=== PATIENT | female | born 1975 | race Caucasian/White ===

== ENCOUNTER 2021-09-03 23:57 | Inpatient (IN) | payer OTHER ==
[~2021-09-03] VITALS: Ht 167.6 cm; Wt 142.7 kg
[2021-09-04 00:43] LABS: BASOPHILS ABSOLUTE AUTO 0.05 K/mm3 (0.00-0.23); BASOPHILS PERCENT AUTO 0 % (0-2); EOSINOPHILS PERCENT AUTO 0 % (0-6); Hematocrit 42.9 % (33.0-51.0); Hemoglobin 13.8 g/dL (11.5-16.0); IMMATURE GRAN ABSOLUTE AUTO 0.16 K/mm3 (0.00-0.10); IMMATURE GRAN PERCENT AUTO 1 % (0-1); LYMPHOCYTES ABSOLUTE AUTO 0.58 K/mm3 (0.84-5.20); LYMPHOCYTES PERCENT AUTO 3 % (21-46); MONOCYTES ABSOLUTE AUTO 0.81 K/mm3 (0.16-1.47); MONOCYTES PERCENT AUTO 4 % (4-13); Mean Corpuscular HGB 27.4 pg (26.0-34.0); Mean Corpuscular HGB Conc 32.2 g/dL (31.5-36.5); Mean Corpuscular Volume 85 fL (80-100); Mean Platelet Volume 10.1 fL (9.1-12.4); NEUTROPHILS ABSOLUTE AUTO 17.67 K/mm3 (1.96-9.15); NEUTROPHILS PERCENT AUTO 92 % (41-73); Platelet Count 259 K/mm3 (150-400); RDW Coefficient Variation 17.5 % (11.7-14.2); RDW Standard Deviation 54.4 fL (35.1-46.3); Red Blood Cell Count 5.03 M/mm3 (3.80-5.20); White Blood Cell Count 19.27 K/mm3 (4.00-11.30)
[2021-09-04 06:57] LABS: Albumin, Blood 3.6 g/dL (3.4-5.0); Albumin/Globulin Ratio 0.9 (0.8-1.8); Bilirubin, Total 0.8 mg/dL (0.1-1.0); Bun/Creatinine Ratio 9.3 (12.0-20.0); Calcium, Blood 9.4 mg/dL (8.5-10.1); Creatinine, Blood 0.86 mg/dL (0.40-1.00); Potassium, Blood 3.5 mmol/L (3.5-5.5); Total Protein, Blood 7.6 g/dL (6.4-8.2)
[2021-09-04] MEDS ORDERED: ATOR20 PO (08:10)
[2021-09-04] MEDS ORDERED: NIAC500 PO (08:12)
[2021-09-04] MEDS ORDERED: HYDCHL25 PO (08:13)
[2021-09-04] MEDS ORDERED: JANTOVEN5 MG PO (08:14)
[2021-09-04] MEDS ORDERED: ESCI20 PO (08:14)
[2021-09-04] MEDS ORDERED: OMEP20ER PO (08:15)
[2021-09-04] MEDS ORDERED: CRANBERRY500 M1 PO (08:17)
[2021-09-04] MEDS ORDERED: MAGNESIUM OXID500 MG PO (08:18)
[2021-09-04] MEDS ORDERED: VITAMIN D5000 UNIT PO (08:19)
[2021-09-04 08:20] LABS: BASOPHILS ABSOLUTE AUTO 0.04 K/mm3 (0.00-0.23); BASOPHILS PERCENT AUTO 0 % (0-2); EOSINOPHILS PERCENT AUTO 0 % (0-6); Hemoglobin 13.6 g/dL (11.5-16.0); IMMATURE GRAN PERCENT AUTO 1 % (0-1); LYMPHOCYTES ABSOLUTE AUTO 0.75 K/mm3 (0.84-5.20); LYMPHOCYTES PERCENT AUTO 5 % (21-46); MONOCYTES ABSOLUTE AUTO 0.69 K/mm3 (0.16-1.47); MONOCYTES PERCENT AUTO 4 % (4-13); Mean Corpuscular HGB 27.4 pg (26.0-34.0); Mean Corpuscular HGB Conc 32.4 g/dL (31.5-36.5); Mean Corpuscular Volume 85 fL (80-100); NEUTROPHILS ABSOLUTE AUTO 14.82 K/mm3 (1.96-9.15); NEUTROPHILS PERCENT AUTO 90 % (41-73); RDW Coefficient Variation 17.6 % (11.7-14.2); Red Blood Cell Count 4.97 M/mm3 (3.80-5.20)
[2021-09-04] MEDS ORDERED: GLUCHON PO (08:20)
[2021-09-04] MEDS ORDERED: HYDROCODONE-AC1 EA17 PO (08:21)
[2021-09-04 08:22] LABS: Mean Platelet Volume 11.2 fL (9.1-12.4); Platelet Count 147 K/mm3 (150-400)
[2021-09-04 08:39] LABS: Appearance, Urine Hazy (Clear); Color, Urine Yellow (P-Yellow); Leukocyte Esterase, Urine 1+ (Neg); Source, Urine Clean Catch; Specific Gravity, Urine 1.005 (1.003-1.022)
[2021-09-04 08:40] LABS: Bilirubin, Urine Neg (Neg); Blood, Urine Neg (Neg); Glucose Qualitative, Urine Neg (Neg); Ketones, Urine Neg (Neg); Nitrite, Urine Pos (Neg); Protein, Urine 2+ (Neg); Urobilinogen, Urine 1+ (Normal)
[2021-09-04 08:41] LABS: Bacteria Mod /hpf; Mucus Light (0-Heavy); Red Blood Cells, Urine 0-2 /hpf (0-2); Squamous Epithelial Cells Few /hpf (Few)
[2021-09-04 08:45] LABS: Bun/Creatinine Ratio 9.7 (12.0-20.0); Calcium, Blood 8.2 mg/dL (8.5-10.1); Creatinine, Blood 0.72 mg/dL (0.40-1.00); Potassium, Blood 3.8 mmol/L (3.5-5.5)
[2021-09-04 09:47] LABS: International Normalized Ratio 1.93; Prothrombin Time Results 19.4 Sec (9.7-11.5)
--- NOTE | 2021-09-04 18:05 | NUR ---
SHIFT SUMMARY- PT C/O OF PAIN, MANAGED PAIN NEES THROUGH EMAR. D/C QUANG, PT USING BED BRUCE NEEDED. PT WITH FAMILY AT BEDSIDE. PT ASLEEP AND RESTING THROUGHOUT MOST OF SHIFT. PT APPETITE POOR. REPOSITIONED PT NEEDED TO MANAGE PAIN RELIEF. PT RESTING NOW WITH SIDE RAIL AND CALL LIGHT WITHIN REACH.
--- NOTE | 2021-09-04 18:50 | NUR ---
THIS BRADDISHER HAS REVEIWED NOTES AND ASSESSMENTS BY DOREEN PERALTA AND AGREES WITH THEM.
[2021-09-05 04:50] LABS: BASOPHILS ABSOLUTE AUTO 0.05 K/mm3 (0.00-0.23); BASOPHILS PERCENT AUTO 0 % (0-2); EOSINOPHILS ABSOLUTE AUTO 0.03 K/mm3 (0.00-0.68); EOSINOPHILS PERCENT AUTO 0 % (0-6); Hematocrit 38.2 % (33.0-51.0); IMMATURE GRAN ABSOLUTE AUTO 0.07 K/mm3 (0.00-0.10); IMMATURE GRAN PERCENT AUTO 1 % (0-1); LYMPHOCYTES ABSOLUTE AUTO 1.89 K/mm3 (0.84-5.20); LYMPHOCYTES PERCENT AUTO 15 % (21-46); MONOCYTES ABSOLUTE AUTO 0.92 K/mm3 (0.16-1.47); MONOCYTES PERCENT AUTO 8 % (4-13); Mean Corpuscular HGB 27.3 pg (26.0-34.0); Mean Corpuscular HGB Conc 31.4 g/dL (31.5-36.5); Mean Corpuscular Volume 87 fL (80-100); Mean Platelet Volume 10.3 fL (9.1-12.4); NEUTROPHILS ABSOLUTE AUTO 9.28 K/mm3 (1.96-9.15); NEUTROPHILS PERCENT AUTO 76 % (41-73); Platelet Count 206 K/mm3 (150-400); RDW Coefficient Variation 17.9 % (11.7-14.2); RDW Standard Deviation 57.4 fL (35.1-46.3); Red Blood Cell Count 4.39 M/mm3 (3.80-5.20); White Blood Cell Count 12.24 K/mm3 (4.00-11.30)
[2021-09-05 05:04] LABS: International Normalized Ratio 1.65; Prothrombin Time Results 16.8 Sec (9.7-11.5)
[2021-09-05 05:21] LABS: Bun/Creatinine Ratio 7.6 (12.0-20.0); Calcium, Blood 8.5 mg/dL (8.5-10.1); Creatinine, Blood 0.66 mg/dL (0.40-1.00); Potassium, Blood 3.4 mmol/L (3.5-5.5)
--- NOTE | 2021-09-05 05:39 | NUR ---
COLLATERAL CLERK SUMMARY PATIENT ALERT AND ORIENTED X4 AND COOPERATIVE. VSS. PT REFUSED NORCO FOR 9/10 PAIN AND ADVIL WAS ADMINISTERED INSTEAD. PT STATED HER PAIN DECLINED TO 8/10 FOLLOWING ADVIL, BUT SHE WAS ABLE TO SLEEP MOST THE REST OF THE SHIFT. PT WAS ABLE TO AMBULATE TO THE BATHROOM AND BACK THIS SHIFT WITH MINIMAL ASSISTANCE. CELLULITIS DOES NOT APPEAR TO HAVE SPREAD. NO OTHER ACUTE CHANGES THIS SHIFT.
[2021-09-05] MEDS ORDERED: ENOX100I SC (12:46)
[2021-09-05] MEDS ORDERED: LACT PO (12:47)
[2021-09-05] MEDS ORDERED: SULFAMETHOXAZO1 EAC1 PO (12:48)
--- NOTE | 2021-09-05 13:54 | NUR ---
DISCHARGE NOTE D/C HOME ORDERS REVIEVED AND REVIEWED. HOME INSTRUCTIONS AND MEDICATIONS REVIEWED WITH PT, PT INSTRUCTED ON HOW TO ADMINISTER LOVENOX INJECTIONS AT HOME. HOME LUCAS REFERRAL SENT TO [facility] WITH [employer]. RX SENT TO PT'S PHARMACY OF CHOICE OF [facility]. PT AND DAUGHTER VERBALIZE UNDERSTANDING AND AGREE. PT DISCHARGED HOME AND WAS EXCORTED OUT VIA WHEELCAHIR AND TRANSPORTED HOME BY DAUGHTER VIA PRIVATE VEHICLE.
== END 2021-09-05 13:53 | disposition home health service (06) | DRG 871 ==
LOC: ER 23:57 → MEDS 09-04 04:30
PROVIDERS: Family Medicine; Student in an Organized Health Care Education/Training Program; ADMIT Internal Medicine
DX: A41.9 Sepsis, unspecified organism (principal); G92.8 Other toxic encephalopathy; L03.116 Cellulitis of left lower limb; N39.0 Urinary tract infection, site not specified; Z86.718 Personal history of other venous thrombosis and embolism; Z90.49 Acquired absence of other specified parts of digestive tract; Z86.711 Personal history of pulmonary embolism; Z98.51 Tubal ligation status; Z79.01 Long term (current) use of anticoagulants; Z98.890 Other specified postprocedural states; Z88.6 Allergy status to analgesic agent; Z88.5 Allergy status to narcotic agent; F17.290 Nicotine dependence, other tobacco product, uncomplicated
CPT/HCPCS: 36415; 51702; 71045; 80048; 80053; 81001; 83605; 83880; 84484; 85025; 85379; 85610; 87040; 87077; 87086; 87186; 93005; 93010; 96374; 97165; 97535; 99285-25; A9270; J0690; J1650; J7030

== ENCOUNTER 2022-03-02 19:38 | Emergency (ER) | payer OTHER ==
[~2022-03-02] VITALS: Ht 167.6 cm; Wt 131.5 kg
[~2022-03-02 19:38] MED LIST: ATOR20 PO; CRANBERRY500 M1 PO; ENOX100I SC; ESCI20 PO; GLUCHON PO; HYDCHL25 PO; HYDROCODONE-AC1 EA17 PO; JANTOVEN5 MG PO; LACT PO; MAGNESIUM OXID500 MG PO; NIAC500 PO; OMEP20ER PO; SULFAMETHOXAZO1 EAC1 PO; VITAMIN D5000 UNIT PO
[2022-03-02 20:47] LABS: BASOPHILS ABSOLUTE AUTO 0.07 K/mm3 (0.00-0.23); BASOPHILS PERCENT AUTO 1 % (0-2); EOSINOPHILS ABSOLUTE AUTO 0.25 K/mm3 (0.00-0.68); EOSINOPHILS PERCENT AUTO 3 % (0-6); Hematocrit 47.8 % (33.0-51.0); Hemoglobin 15.1 g/dL (11.5-16.0); IMMATURE GRAN ABSOLUTE AUTO 0.04 K/mm3 (0.00-0.10); IMMATURE GRAN PERCENT AUTO 0 % (0-1); LYMPHOCYTES ABSOLUTE AUTO 2.97 K/mm3 (0.84-5.20); LYMPHOCYTES PERCENT AUTO 33 % (21-46); MONOCYTES ABSOLUTE AUTO 0.54 K/mm3 (0.16-1.47); MONOCYTES PERCENT AUTO 6 % (4-13); Mean Corpuscular HGB 25.6 pg (26.0-34.0); Mean Corpuscular HGB Conc 31.6 g/dL (31.5-36.5); Mean Corpuscular Volume 81 fL (80-100); Mean Platelet Volume 10.3 fL (9.1-12.4); NEUTROPHILS ABSOLUTE AUTO 5.05 K/mm3 (1.96-9.15); NEUTROPHILS PERCENT AUTO 57 % (41-73); Platelet Count 344 K/mm3 (150-400); White Blood Cell Count 8.92 K/mm3 (4.00-11.30)
[2022-03-02 21:33] LABS: Albumin, Blood 3.7 g/dL (3.4-5.0); Albumin/Globulin Ratio 0.9 (0.8-1.8); Bilirubin, Total 0.4 mg/dL (0.1-1.0); Bun/Creatinine Ratio 13.2 (12.0-20.0); Calcium, Blood 9.6 mg/dL (8.5-10.1); Creatinine, Blood 0.68 mg/dL (0.40-1.00); Globulin, Blood 4.2 g/dL (2.2-4.0); Potassium, Blood 3.7 mmol/L (3.5-5.5); Total Protein, Blood 7.9 g/dL (6.4-8.2)
[2022-03-03 02:22] LABS: International Normalized Ratio 3.05; Prothrombin Time Results 29.8 Sec (9.7-11.5)
[2022-03-03] MEDS ORDERED: COLCHICINE0.6 MG PO (05:32)
== END 2022-03-03 05:35 | disposition home or self-care (01) ==
LOC: ER 19:38
PROVIDERS: Physician Assistant; Student in an Organized Health Care Education/Training Program
DX: R07.89 Other chest pain (principal); R07.81 Pleurodynia; B34.9 Viral infection, unspecified; Z88.8 Allergy status to other drugs, medicaments and biological substances; Z88.5 Allergy status to narcotic agent; Z79.899 Other long term (current) drug therapy; Z79.01 Long term (current) use of anticoagulants; Z28.310 Unvaccinated for COVID-19
CPT/HCPCS: 36415; 71045; 71260; 80053; 84484; 85025; 85610; 93005; 93010; A9270; J1885; Q9967